=== PATIENT | female | born 1945 | race Caucasian/White ===

== ENCOUNTER → 2017-03-28 | Outpatient (CLI) | payer MEDICARE ==
[2017-03-28 10:44] LABS: Basophils % (A) 1 %; CH 29.3; CHCM 32.4; Eosinophils # (A) 0.1 k/uL (0-0.7); Eosinophils % (A) 2 %; HCT 44.2 % (34.0-46.0); HDW 2.48; HGB 14.6 gm/dL (11.4-16.0); Luc # (Auto) 0.13; Luc % (Auto) 2; Lymphocytes % (A) 51 %; MCH 29.9 pg (25.0-35.0); MCV 90.6 fL (80.0-100.0); Mean Platelet Volume 7.1; Monocytes # (A) 0.4 k/uL (0-1.0); Monocytes % (A) 6 %; Neutrophils # (A) 2.3 k/uL (1.3-7.7); Neutrophils % (A) 39 %; RBC 4.88 m/uL (3.80-5.40); RDW 14.1 % (11.5-15.5); WBC 5.8 k/uL (3.8-10.6); WBC (Perox) 5.64
[2017-03-28 10:52] LABS: Appearance,Urine Cloudy (Clear); Bacteria,Urine Few /hpf; Bilirubin,Urine Negative (Negative); Glucose,Urine (UA) Negative (Negative); Ketones,Urine Negative (Negative); Leukocyte Esterase,Urine Large (Negative); Mucus,Urine Few /hpf; Nitrite,Urine Negative (Negative); PH, Urine 5.5 (5.0-8.0); Particle Count 10246; Protein,Urine Trace (Negative); RBC,Urine 18 /hpf (0-5); Specific Gravity,Urine 1.017 (1.001-1.035); Squamous Epithelial Cell,Urine 1 /hpf (0-4); UA Billing (MACRO vs. MICRO) MICRO; Urobilinogen,Urine <2.0 mg/dL (<2.0); WBC,Urine >182 /hpf (0-5)
[2017-03-28 11:00] LABS: ALT 43 U/L (9-52); AST 39 U/L (14-36); Alkaline Phosphatase 87 U/L (38-126); Anion Gap 9 mmol/L; Blood Urea Nitrogen 12 mg/dL (7-17); Calcium 9.7 mg/dL (8.4-10.2); Carbon Dioxide 26 mmol/L (22-30); Chloride 106 mmol/L (98-107); Cholesterol 162 mg/dL (<200); Creatine Kinase 43 U/L (30-135); Glucose 102 mg/dL (74-99); HDL Cholesterol 47 mg/dL (40-60); Non-African American GFR(MDRD) >60 (>60 ml/min/1.73 sqM); Potassium 4.4 mmol/L (3.5-5.1); Sodium 141 mmol/L (137-145); Total Bilirubin 0.6 mg/dL (0.2-1.3); Uric Acid 5.4 mg/dL (3.7-7.4)
[2017-03-28 12:09] LABS: Manual Review Performed; RBC Morphology Normal
== END | disposition home or self-care (01) ==
LOC: LABWHC1 10:27
PROVIDERS: ATTEND Internal Medicine
DX: E78.00 Pure hypercholesterolemia, unspecified (principal); I10 Essential (primary) hypertension; F41.1 Generalized anxiety disorder; M15.9 Polyosteoarthritis, unspecified
CPT/HCPCS: 36415; 80053; 80061; 81001; 82306; 82550; 83036; 84439; 84443; 84550; 85025

== ENCOUNTER → 2017-04-19 | Outpatient (CLI) | payer MEDICARE ==
--- NOTE | 2017-04-19 16:15 | XR ---
EXAMINATION TYPE: XR chest 2V DATE OF EXAM: 04/19/2017 COMPARISON: NONE HISTORY: Shortness of breath TECHNIQUE: Frontal and lateral views of the chest are obtained. FINDINGS: Scattered senescent parenchymal changes noted. Hyperinflation compatible with COPD. No evidence for infiltrate. No evidence for atelectasis. Heart size is stable. Mediastinal structures are stable and grossly unremarkable. No evidence for hilar prominence. No epicardial leads. Sternotomy wires mediastinal clips noted. Degenerative changes dorsal spine. IMPRESSION: 1. No evidence for acute pulmonary disease. 2. The patient is cleared for MRI.
== END | disposition home or self-care (01) ==
LOC: RADXRMAIN 15:47
PROVIDERS: ATTEND Orthopaedic Surgery
DX: Z01.818 Encounter for other preprocedural examination (principal)
CPT/HCPCS: 71020

== ENCOUNTER 2018-11-07 23:12 | Emergency (ER) | payer MEDICARE ==
[2018-11-07 23:18] VITALS: BP 146/82; PULSE 94; RESP 20; TEMP 98.5
[2018-11-07] MEDS ORDERED: PROPARACAINE 0.5% OPHTH DROPS 15 ML BTL LEFT EYE STA (23:32)
[2018-11-08] MEDS ORDERED: ERYTHROMYCIN 5 MG/GM OPHTH OINT 3.5 GM TUBE LEFT EYE SCH
--- NOTE | 2018-11-08 00:30 | ED ---
General Adult HPI - General Chief complaint: Eye Problems Stated complaint: left eye problems Time Seen by Provider: 11/07/18 23:19 Source: patient, family, RN notes reviewed, old records reviewed Mode of arrival: ambulatory Limitations: no limitations - History of Present Illness Initial comments: 72-year-old female patient presents to ED with complaint of pain in her left medial canthus approximate 4 days. Patient reports that she was seen by an renal nurse and placed on a steroid approximately 2 days ago. Patient states that she has redness in right medial canthus which is worse today. Patient does state that she was rubbing her eyes. Patient denies any changes in vision. Denies any headache, nausea vomiting diarrhea, denies any other complaints. Systemic: Pt denies fatigue, fever/chills, rash. Pt denies weakness, night sweats, weight loss. Neuro: Pt denies headache, visual disturbances, syncope or pre-syncope. HEENT: Pt denies ocular discharge or irritation, otalgia, rhinorrhea, pharyngitis or notable lymphadenopathy. Cardiopulmonary: Pt denies chest pain, SOB, heart palpitations, dyspnea on exertion. Abdominal/GI: Pt denies abdominal pain, n/v/d. : Pt denies dysuria, burning w/ urination, frequency/urgency. Denies new onset urinary or bowel incontinence. MSK: Pt denies myalgia, loss of strength or function in extremities. Neuro: Pt denies new onset weakness, paresthesias. - Related Data Previous Rx's Medication Instructions Recorded Erythromycin Ophth Oint [Romycin 1 applic LEFT EYE QID 5 Days #1 11/08/18 Ophth Oint] tube Allergies Allergy/AdvReac Type Severity Reaction Status Date / Time No Known Allergies Allergy Verified 11/07/18 23:18 Review of Systems ROS Statement: Those systems with pertinent positive or pertinent negative responses have been documented in the HPI. ROS Other: All systems not noted in ROS Statement are negative. Past Medical History Additional Past Medical History / Comment(s): UTI History of Any Multi-Drug Resistant Organisms: None Reported Past Surgical History: Appendectomy, Section, Hysterectomy Additional Past Surgical History / Comment(s): aortic valve replacement Past Psychological History: No Psychological Hx Reported Smoking Status: Never smoker Past Alcohol Use History: None Reported Past Drug Use History: None Reported General Exam - General Exam Comments Initial Comments: Constitutional: NAD, AOX3, Pt has pleasant affect. HEENT: NC/AT, trachea midline, neck supple, no lymphadenopathy. Posterior pharynx non erythematous, without exudates. External ears appear normal, without discharge. Mucous membranes moist. Eyes PERRLA, EOM intact. Small hematoma noted in left medial canthus. No injection. Small 2mm laceration noted to upper eyelid region. There is no scleral icterus. No pallor noted. Mild amount of ecchymosis noted to lower eye lid. Cardiopulmonary: RRR, no murmurs, rubs or gallops, no JVD noted. Lungs CTAB in anterior and posterior nair. No peripheral edema. Abdominal exam: Abdomen soft and non-distended. Abdomen non-tender to palpation in all 4 quadrants. Bowel sounds active in LLQ. No hepatosplenomegaly. No ecchymosis Neuro: CN II-XII grossly intact. No nuchal rigidity. No raccon eyes, no gaffney sign, no hemotympanum. No cervical spinal tenderness. MSK: No posterior calf tenderness bilaterally, homans sign negative bilaterally. Posterior tibialis and radial pulse +2 bilaterally. Sensation intact in upper and lower extremities. Full active ROM in upper and lower extremities, 5/5 stregnth. Limitations: no limitations Course Vital Signs 11/07/18 23:13 Temperature 98.5 F Pulse Rate 94 Respiratory 20 Rate Blood Pressure 146/82 O2 Sat by Pulse 97 Oximetry Medical Decision Making - Medical Decision Making 72-year-old female patient presents to ED with complaint of pain in her left medial canthus approximate 4 days. Patient reports that she was seen by an renal nurse and placed on a steroid approximately 2 days ago. Patient states that she has redness in right medial canthus which is worse today. Patient does state that she was rubbing her eyes. Patient denies any changes in vision. Denies any headache, nausea vomiting diarrhea, denies any other complaints. Pt VSS, afebrile. Physical exam displayed: Small hematoma noted in left medial canthus. No injection. Small 2mm laceration noted to upper eyelid region. There is no scleral icterus. No pallor noted. Mild amount of ecchymosis noted to lower eye lid. Visual acuity right eye 20/40. L eye 20/25. Pt likely has a small 2mm laceration from rubbing eye causing the hematoma and very mild ecchymosis. Case discussed in depth with Dr. Gill who evaluated patient and disucssed case with city controller opthomologist Dr. Ruffin. Pt will be discharged with erythromycin, will f/u with optomitrist who she previously was established with. Pt will be discharged with erythromycin. Pt is not contact lens user. Disposition Clinical Impression: Hematoma Disposition: HOME SELF-CARE Condition: Stable Instructions (If sedation given, give patient instructions): Hematoma (ED) Additional Instructions: Patient to adhere to previously discussed treatment plan and will take medication(s) as directed. Patient to follow up with PCP in 1-2 days. Patient to return to ED if symptoms do not improve. He's medication as prescribed. Follow up with opthamologist tomorrow. Return to ER if condition worsens in any way. Prescriptions: Erythromycin Ophth Oint [Romycin Ophth Oint] 1 applic LEFT EYE QID 5 Days #1 tube Is patient prescribed a controlled substance at d/c from ED?: No Referrals: Susanne Evans MD [Primary Care Provider] - 1-2 days Austyn Ruffin MD [STAFF PHYSICIAN] - 1-2 days
== END 2018-11-08 00:44 | disposition home or self-care (01) ==
LOC: EC 23:12
DX: S01.112A Laceration without foreign body of left eyelid and periocular area, initial encounter (principal); Z95.4 Presence of other heart-valve replacement; X58.XXXA Exposure to other specified factors, initial encounter
CPT/HCPCS: 99283

== ENCOUNTER → 2019-04-11 | Outpatient (CLI) | payer MEDICARE ==
--- NOTE | 2019-04-12 07:33 | BD ---
EXAMINATION TYPE: Axial Bone Density DATE OF EXAM: 04/11/2019 COMPARISON: 12.14.2015 CLINICAL HISTORY: 73 YR OLD FEMALE...ICD-10 CODE: M81.0 OSTEOPOROSIS Height: 60 Weight: 159 FRAX RISK QUESTIONS: NOTHING ADDITIONAL TO NOTE HERE RISK FACTORS HISTORY OF: Diet low in dairy products/other sources of calcium: YES Postmenopausal woman: YES, TOTAL HYST AT 52 YRS, HRT FOR SHORT WHILE ONLY Hyperparathyroidism: NO Adrenal Insufficiency: NO MEDICATIONS: Thyroid Medications: STOPPED 17 YRS AGO Additional Medications: BP MEDS, MULTIVITAMIN WITH CALCIUM AND D, REFLUX PRN, STATIN FOR CHOLESTEROL, HEART MEDS Additional History: AORTIC VALVE REPLACEMENT, HYPERTENSION,REFLUX, OSTEOARTHRITIS EXAM MEASUREMENTS: Bone mineral densitometry was performed using the [employer] System. Bone mineral density as measured about the Lumbar spine is: ----- L1-L4(G/cm2): 1.197 T Score Values are as follows: ----- L1: -0.6 ----- L2: 0.2 ----- L3: -0.1 ----- L4: 0.7 ----- L1-L4: 0.1 Bone mineral density has: Increased 4.0% since study of: 12.14.2015 Bone mineral density about the R hip (g/cm2): 0.890 Bone mineral density about the L hip (g/cm2): 0.928 T Score values are as follows: -----R Neck: -1.4 -----L Neck: -1.1 -----R Total: -0.9 -----L Total: -0.6 Bone mineral density has: Decreased -4.5% since study of: 12.14.2015 FRAX%s: THERE IS A 10.3% CHANCE FOR A MAJOR OSTEOPOROTIC FX AND A 1.7% FOR HIP.....PROBABILITY FOR FX IN 10 YRS TIME IMPRESSION: No evidence for osteoporosis or osteopenia. NOTE: T-SCORE=SD OF THE YOUNG ADULT MEAN.
--- NOTE | 2019-04-15 10:41 | MM ---
Reason for exam: screening (asymptomatic). Last mammogram was performed 2 years and 1 month ago. History: Patient is postmenopausal. Family history of premenopausal breast cancer in grandmother at age 40. Benign core biopsy of the right breast, September 2004. Took unspecified hormones for 3 years beginning at age 56. Physical Findings: A clinical breast exam by your physician is recommended on an annual basis and results should be correlated with mammographic findings. MG 3D Screening Mammo W/Cad Bilateral CC and MLO view(s) were taken. Prior study comparison: March 24, 2017, bilateral MG 3d screening mammo w/cad. December 14, 2015, bilateral MG 3d screening mammo w/cad. There are scattered fibroglandular densities. There is a stable oval circumscribed right anterior depth upper outer quadrant mass. Benign appearing calcifications in the right breast. No suspicious abnormality. No significant changes when compared with prior studies. ASSESSMENT: Benign, BI-RAD 2 RECOMMENDATION: Routine screening mammogram of both breasts in 1 year.
== END | disposition home or self-care (01) ==
LOC: RADMAMWWP 13:47
PROVIDERS: ATTEND Internal Medicine
DX: Z12.31 Encounter for screening mammogram for malignant neoplasm of breast (principal); M81.0 Age-related osteoporosis without current pathological fracture
CPT/HCPCS: 77063; 77067; 77080

== ENCOUNTER → 2020-04-08 | Outpatient (CLI) | payer MEDICARE | END | disposition home or self-care (01) | LOC: LABWHC1 12:34 | PROVIDERS: ATTEND Internal Medicine | DX: Z20.828 Contact with and (suspected) exposure to other viral communicable diseases (principal) | CPT/HCPCS: U0003; C9803 ==

== ENCOUNTER 2020-06-01 08:09 | Day surgery (SDC) | payer MEDICARE ==
[2020-05-26 10:51] VITALS: BMI 31.2
[2020-06-01] MEDS ORDERED: fentaNYL (PF) 50 MCG/ML 2 ML AMP ONE (08:24)
[2020-06-01] MEDS ORDERED: SODIUM CHLORIDE 0.9% 500 ML 500 ML IV ONE (08:34)
[2020-06-01 08:35] VITALS: TEMP 98.2
[2020-06-01 08:43] LABS: Appearance,Urine Clear (Clear); Bacteria,Urine Rare /hpf; Bilirubin,Urine Negative (Negative); Blood,Urine Trace (Negative); Color,Urine Yellow; Glucose,Urine (UA) Negative (Negative); Hyaline Casts,Urine 1 /lpf (0-2); Ketones,Urine Negative (Negative); Leukocyte Esterase,Urine Large (Negative); Mucus,Urine Occasional /hpf; Nitrite,Urine Negative (Negative); PH, Urine 5.5 (5.0-8.0); Protein,Urine Negative (Negative); RBC,Urine 11 /hpf (0-5); Specific Gravity,Urine 1.018 (1.001-1.035); Squamous Epithelial Cell,Urine <1 /hpf (0-4); Urobilinogen,Urine <2.0 mg/dL (<2.0); WBC,Urine 67 /hpf (0-5)
[2020-06-01] MEDS ORDERED: fentaNYL (PF) 50 MCG/ML 2 ML AMP IV ONE ×2 (08:55)
[2020-06-01] MEDS ORDERED: MIDAZOLAM 2 MG/2 ML VIAL IV ONE ×2 (08:55)
[2020-06-01 09:12] VITALS: RESP 16
--- NOTE | 2020-06-01 09:30 | P.TEE ---
Indications for Procedure(s): Aortic and mitral regurgitation Date of Procedure: 06/01/20 Preoperative Diagnosis: History of aortic valve replacement for bicuspid aortic valve. Presence of moderate and is severe aortic and mitral regurgitation. Description of Procedure(s): INDICATION: This patient has history of aortic valve replacement for bicuspid aortic valve, about 10 years ago. She was found to have evidence of moderate aortic and mitral regurgitation. Patient is advised to have LAMAR examination for further evaluation CONSENT: Informed verbal consent is obtained from the patient PROCEDURE: Patient was brought to the lab in a fasting state. She was prepped and draped in the usual fashion. Patient was given a total of 3 mg of Versed and 50 g of fentanyl for sedation. The throat was sprayed with Hurricaine. A lubricated Omni probe was introduced into the oropharynx and was advanced into the esophagus. Patient tolerated the procedure well. No immediate complications. Color, pulsed and continuous wave Doppler was performed. Saline contrast bubble injection was also performed FINDINGS: There is a mild prosthetic valve in the aortic position which showing normal opening excursion. There is a central aortic regurgitation which appears to be about 3+. Slightly eccentric. The aortic root diameter is about 4 cm. The mitral valve showed evidence of prolapse involving the anterior mitral leaflet. There is a moderate to severe mitral regurgitation which is about 3+. No reversal of flow in the pulmonary veins. There is biatrial enlargement. No clot in the left atrial appendage. No crossing of bubbles across the interatrial septum and no spontaneous shunting across the septum. The left ventricle appeared to be mildly dilated with mildly impaired LV function. Aorta did not show any significant plaque IMPRESSION: 1. About 3+ aortic regurgitation which is a valvular #2, about 3+ mitral regurgitation with evidence of mitral valve prolapse and thickening involving the anterior leaflet #3. No clot in the left atrial appendage. #4. No PFO #5. Left atrial enlargement #6. Left ventricle size is at the upper limits of normal with mildly impaired LV function. #7. No significant plaque in the aorta PLAN: Patient to continue current medical therapy. Follow up with Dr. TIA Carbajal and also at [facility] regarding further management.
[2020-06-01 10:33] VITALS: BP 126/58; PULSE 62
== END 2020-06-01 10:45 | disposition home or self-care (01) ==
LOC: CATHCVL 08:09
PROVIDERS: ATTEND Internal Medicine Cardiovascular Disease
DX: Q23.1 Congenital insufficiency of aortic valve (principal); I25.10 Atherosclerotic heart disease of native coronary artery without angina pectoris; I44.7 Left bundle-branch block, unspecified; I10 Essential (primary) hypertension; E78.00 Pure hypercholesterolemia, unspecified; E78.5 Hyperlipidemia, unspecified; Z79.899 Other long term (current) drug therapy; Z79.82 Long term (current) use of aspirin; Z95.3 Presence of xenogenic heart valve
CPT/HCPCS: 93312; 93320; 93325; 81001; 87086; J2250; J3010

== ENCOUNTER 2020-06-19 08:06 | Day surgery (SDC) | payer MEDICARE ==
[2020-06-17 10:08] VITALS: BMI 30.7
[~2020-06-19 08:06] MED LIST: ALPRAZolam 0.25 MG TAB PO PRN; ALPRAZolam 0.5 MG TAB PO PRN; ASPIRIN 325 MG TAB PO STA; ATORVASTATIN 80 MG TAB PO STA; HEPARIN SODIUM,PORCINE 10,000 UNIT in SODIUM CHLORIDE 0.9% 1,000 ML IRRIGATION PRN; HEPARIN SODIUM,PORCINE 2,500 UNIT in SODIUM CHLORIDE 0.9% 250 ML IRRIGATION PRN; NITROGLYCERIN SL TABS 0.4 MG TAB SUBLINGUAL PRN; SODIUM CHLORIDE 0.9% 1,000 ML in EMPTY BAG 1 BAG IV ONE
[2020-06-19] MEDS ORDERED: SODIUM CHLORIDE 0.9% 1,000 ML IV ONE (08:12)
[2020-06-19] MEDS ORDERED: LIDOCAINE 1% INJ 10MG/ML (20 ML MDV) ONE (08:26)
[2020-06-19 08:44] LABS: Basophils # (A) 0.1 k/uL (0-0.2); Basophils % (A) 1 %; Eosinophils # (A) 0.2 k/uL (0-0.7); Eosinophils % (A) 3 %; HCT 46.5 % (34.0-46.0); Lymphocytes # (A) 2.3 k/uL (1.0-4.8); Lymphocytes % (A) 38 %; MCH 30.8 pg (25.0-35.0); MCHC 34.4 g/dL (31.0-37.0); MCV 89.4 fL (80.0-100.0); Mean Platelet Volume 6.5; Monocytes # (A) 0.3 k/uL (0-1.0); Monocytes % (A) 5 %; Neutrophils # (A) 3.1 k/uL (1.3-7.7); Neutrophils % (A) 52 %; Platelet Count 174 k/uL (150-450); RBC 5.19 m/uL (3.80-5.40); RDW 12.7 % (11.5-15.5); WBC 5.9 k/uL (3.8-10.6)
[2020-06-19 08:54] LABS: Calcium 10.2 mg/dL (8.4-10.2); Potassium 4.6 mmol/L (3.5-5.1)
[2020-06-19 08:58] VITALS: RESP 16; TEMP 98
[2020-06-19] MEDS: MIDAZOLAM 2 MG/2 ML VIAL IV ONE ×2 (09:58→10:10)
[2020-06-19] MEDS ORDERED: LIDOCAINE 1% INJ 10MG/ML (20 ML MDV) SQ ONE (10:00)
[2020-06-19] MEDS ORDERED: IOPAMIDOL-370 125ML BTL INJ ONE (10:25)
[2020-06-19] MEDS ORDERED: SODIUM CHLORIDE 0.9% 1,000 ML IV SCH (10:41)
[2020-06-19] MEDS ORDERED: ACETAMINOPHEN TAB 325 MG TAB PO STA (10:49)
[2020-06-19] MEDS ORDERED: ACETAMINOPHEN TAB 325 MG TAB ONE (10:50)
[2020-06-19 11:44] LABS: ALT 115 U/L (4-34); AST 101 U/L (14-36); African American GFR (CKD) >90 (>60 ml/min/1.73 sqM); Alkaline Phosphatase 45 U/L (38-126); Anion Gap 8 mmol/L; Blood Urea Nitrogen 15 mg/dL (7-17); Carbon Dioxide 24 mmol/L (22-30); Chloride 106 mmol/L (98-107); Glucose 115 mg/dL (74-99); Non-African American GFR(CKD) 79 (>60 ml/min/1.73 sqM); Potassium 4.1 mmol/L (3.5-5.1); Sodium 138 mmol/L (137-145); Total Bilirubin 1.1 mg/dL (0.2-1.3)
[2020-06-19 11:50] LABS: Basophils % (A) 1 %; Eosinophils # (A) 0.2 k/uL (0-0.7); Eosinophils % (A) 4 %; HCT 41.6 % (34.0-46.0); HGB 14.7 gm/dL (11.4-16.0); Lymphocytes # (A) 1.9 k/uL (1.0-4.8); Lymphocytes % (A) 33 %; MCHC 35.3 g/dL (31.0-37.0); MCV 87.8 fL (80.0-100.0); Mean Platelet Volume 7.3; Monocytes # (A) 0.4 k/uL (0-1.0); Monocytes % (A) 7 %; Neutrophils # (A) 3.2 k/uL (1.3-7.7); Neutrophils % (A) 55 %; Platelet Count 240 k/uL (150-450); RBC 4.74 m/uL (3.80-5.40); RDW 12.8 % (11.5-15.5); WBC 5.8 k/uL (3.8-10.6)
[2020-06-19 12:00] LABS: T4, Free (Free Thyroxine) 1.23 ng/dL (0.78-2.19)
--- NOTE | 2020-06-19 12:52 | CC ---
CARDIAC CATHETERIZATION REPORT DATE OF SERVICE: 06/19/2020. PROCEDURE: Coronary angiography. PERFORMED BY: Dr. Jarocho Carbajal. Moderate conscious sedation time was 28 minutes. Patient was administered Versed. Oxygen saturation, hemodynamics and EKG were monitored very closely. CLINICAL INFORMATION: Mrs. Shaffer is a 74-year-old lady with a history of bicuspid aortic valve without dilatation of ascending aorta. In 2007 at [facility], she had a bioprosthetic aortic valve placed. Over time she has developed significant regurgitation of the bioprosthetic aortic valve and also of her mitral valve with mitral valve prolapse. She was evaluated at [facility] following a transesophageal echo and they requested a right and left heart catheterization, and therefore I brought in the patient for the procedure today after due discussion regarding risks, benefits, and options. PROCEDURE NOTE: Under local anesthesia and strict aseptic precautions, I tried to gain access to the right femoral vein, but I had difficulty and patient had an important coronavirus antigen injection today around 6 p.m. so I did not want to place a larger venous sheath. I therefore decided only to do coronary angiography. A 6-Uzbek introducer placed in the right femoral artery. Using a standard right Ildefonso catheter and a JL4.5 catheter, I performed selective coronary angiography. LV pressures were not checked. LV gram was not performed. The sheath was taken out and Angio-Seal device used to secure hemostasis and a FemoStop was applied just as an extra precaution even though there was good hemostasis and she was sent to the room in a stable condition. CORONARY ANGIOGRAPHY FINDINGS: RIGHT CORONARY ARTERY: Dominant vessel has some spasm in the proximal portion with about a 40% narrowing in the proximal portion of the RCA, but no significant disease. Distally the vessel gives off a large PDA and small PLV supplies sizable amount of myocardium. No significant disease. The dominant RCA has a 40% lesion. LEFT MAIN CORONARY ARTERY: This is a very short vessel immediately bifurcates into LAD and circumflex. No significant disease. LEFT ANTERIOR DESCENDING CORONARY ARTERY: Good caliber vessel extends along the anterior wall supplies a sizable amount of myocardium. It gives off septal and diagonal branches. It runs all the way to the apex supplying a sizable amount of myocardium. No significant disease in the large LAD system. LEFT POSTERIOR CIRCUMFLEX CORONARY ARTERY: Nondominant vessel gives off a first obtuse marginal and then continues as a posterolateral branch has a groove branch. The circumflex is a large vessel. No significant disease. FINAL IMPRESSION: This patient has right dominant system, 40% stenosis in the proximal RCA. No significant disease in circumflex, left main or LAD. RECOMMENDATIONS: From a valvular disease standpoint, the decision regarding percutaneous aortic valve implant versus open surgery with aortic valve replacement, redo operation and mitral valve repair will be made by Dr. Vasu Oropeza. I will send the CD to him. Findings were discussed with the patient. I spoke to her and daughter by phone. We will send her home this evening and I will see her in the office on Monday and I will send a CD to the [facility] and a copy will be given to the patient. From my perspective, doing a percutaneous aortic valve implant if feasible would be a good approach and consider mitral valve repair down the road if necessary for mitral valve prolapse. I suspect the aortic regurgitation and higher of pressures may be also affecting the mitral valve performance. MMODL / IJN: [id number] /
[2020-06-19 16:11] VITALS: BP 126/59; PULSE 81
== END 2020-06-19 16:01 | disposition home or self-care (01) ==
LOC: CATHCVL 08:06
PROVIDERS: ATTEND Internal Medicine Interventional Cardiology
DX: I25.10 Atherosclerotic heart disease of native coronary artery without angina pectoris (principal); I44.7 Left bundle-branch block, unspecified; I10 Essential (primary) hypertension; E78.00 Pure hypercholesterolemia, unspecified; E78.5 Hyperlipidemia, unspecified; E66.3 Overweight; Z87.74 Personal history of (corrected) congenital malformations of heart and circulatory system; Z95.2 Presence of prosthetic heart valve; Z79.82 Long term (current) use of aspirin; Z79.899 Other long term (current) drug therapy; Z68.30 Body mass index [BMI] 30.0-30.9, adult
CPT/HCPCS: 93454; 84439; 80053; 84443; 85025; C1760; C1751; C1894; C1769; J2250; J2001; Q9967; 80048

== ENCOUNTER → 2021-05-10 | Outpatient (CLI) | payer MEDICARE ==
--- NOTE | 2021-05-11 10:36 | BD ---
EXAMINATION TYPE: Axial Bone Density DATE OF EXAM: 05/10/2021 COMPARISON: NONE CLINICAL HISTORY: M81.0 AGE RELATED OSTEOPOROSIS Height: 5 FT Weight: 139 FRAX RISK QUESTIONS: Alcohol (3 or more units per day): NO Family History (Parent hip fracture): NO Glucocorticoids (More than 3mos): NO (Ex: prednisone, prednisolone, methylprednisolone, dexamethasone, and hydrocortisone). History of Fracture in Adulthood: NO Secondary Osteoporosis: 1. Type 1 Diabetes: NO 2. Hyperthyroidism: NO 3. Menopause before 45: NO 4. Malnutrition: NO 5. Chronic liver disease: NO Rheumatoid Arthritis: NO Current Tobacco Use: NO RISK FACTORS HISTORY OF: Surgery to Spine/Hip(right/left)/Wrist (right/left): NO Family History of Osteoporosis: NO Active: SOMEWHAT Diet low in dairy products/other sources of calcium: NO Postmenopausal woman: YES Take estrogen and/or progesterone medications: TOOK HRT FOR UNDER FIVE YEARS NO LONGER TAKES Lost more than 2 inches in height since high school: NO Frequent falls: NO Poor Health: FAIR Hyperparathyroidism: NO Adrenal Insufficiency: NO MEDICATIONS: Additional Medications: METOPROLOL, LISINOPRIL, ASPIRIN, CRESTOR,OMEPRAZOLE, ANXIETY MEDS, Additional History: EXAM MEASUREMENTS: Bone mineral densitometry was performed using the [employer] System. Bone mineral density as measured about the Lumbar spine is: ----- L1-L4(G/cm2): 1.083 T Score Values are as follows: ----- L2: -0.2 ----- L3: -1.1 ----- L4: -0.9 ----- L1-L4: -0.8 Bone mineral density has: DECREASED -10.4 % since study of: 2018 Bone mineral density about the R hip (g/cm2): 0.816 Bone mineral density about the L hip (g/cm2): 0.790 T Score values are as follows: -----R Neck: -1.6 -----L Neck: -1.8 -----R Total: -1.5 -----L Total: -1.2 Bone mineral density has: DECREASED -7.5 % since study of: 2018 IMPRESSION: Osteopenia (T Score between -2.5 and -1). There is slightly increased risk of fracture and the patient may be considered for treatment. Re-Screen 2-5 years. NOTE: T-SCORE=SD OF THE YOUNG ADULT MEAN.
--- NOTE | 2021-05-11 12:28 | MM ---
Reason for exam: screening (asymptomatic). Last mammogram was performed 2 years and 1 month ago. History: Patient is postmenopausal. Family history of premenopausal breast cancer in grandmother at age 40. Benign core biopsy of the right breast, September 2004. Took unspecified hormones for 3 years beginning at age 56. Physical Findings: A clinical breast exam by your physician is recommended on an annual basis and results should be correlated with mammographic findings. MG 3D Screening Mammo W/Cad Bilateral CC and MLO view(s) were taken. Prior study comparison: April 11, 2019, bilateral MG 3d screening mammo w/cad. March 24, 2017, bilateral MG 3d screening mammo w/cad. There are scattered fibroglandular densities. No significant changes when compared with prior studies. ASSESSMENT: Benign, BI-RAD 2 RECOMMENDATION: Routine screening mammogram of both breasts in 1 year.
== END | disposition home or self-care (01) ==
LOC: RADBDWWP 15:38
PROVIDERS: ATTEND Internal Medicine
DX: Z12.31 Encounter for screening mammogram for malignant neoplasm of breast (principal); M81.0 Age-related osteoporosis without current pathological fracture
CPT/HCPCS: 77063; 77067; 77080

== ENCOUNTER → 2023-05-11 | Outpatient (CLI) | payer MEDICARE ==
--- NOTE | 2023-05-17 12:30 | MM ---
Reason for Exam: Screening (asymptomatic). Last mammogram was performed 2 year(s) and 0 month(s) ago. Patient History: Menarche at age 13. First Full-Term at age 23. Left ovary removed at age 52. Right ovary removed at age 52. Hysterectomy at age 52. Postmenopausal. Unspecified Hormone for 3 years from age 56 until age 59. 09/2004, Benign Core Biopsy on the right side. Paternal grandmother had breast cancer, age 40. Risk Values: Katrin 5 year model risk: 1.8%. NCI Lifetime model risk: 3.5%. Prior Study Comparison: 02/03/2014 Bilateral Screening Mammogram, [facility]. 12/14/2015 Bilateral Screening Mammogram, [facility]. 03/24/2017 Bilateral Screening Mammogram, [facility]. 04/11/2019 Bilateral Screening Mammogram, [facility]. 05/10/2021 Bilateral Screening Mammogram, [facility]. Tissue Density: The breast tissue is almost entirely fat. Findings: Analyzed By CAD. Right breast biopsy clip. There is no suspicious group of microcalcifications or new suspicious mass. Overall Assessment: Benign, BI-RAD 2 Management: Screening Mammogram of both breasts in [address] [facility] will attempt to contact patient to return for supplemental views and ultrasound if indicated. Patient should continue monthly self-breast exams. A clinical breast exam by your physician is recommended on an annual basis. This exam should not preclude additional follow-up of suspicious palpable abnormalities. Note on Katrin scores and lifetime risk: 1. A Katrin score greater than 3% is considered moderate risk. If this is the case, consider specialist referral to assess eligibility for a risk reducing agent. 2. If overall lifetime risk for the development of breast cancer is 20% or higher, the patient may qualify for future screening with alternating mammogram and breast MRI. Electronically signed and approved by: Willie Garcia DO
== END | disposition home or self-care (01) ==
LOC: RADBDWWP 11:59
PROVIDERS: ATTEND Internal Medicine
DX: Z12.31 Encounter for screening mammogram for malignant neoplasm of breast (principal); Z78.0 Asymptomatic menopausal state; Z80.3 Family history of malignant neoplasm of breast
CPT/HCPCS: 77063; 77067

== ENCOUNTER 2024-11-28 13:01 | Inpatient (IN) | payer MEDICARE ==
--- NOTE | 2024-11-28 13:22 | ED ---
General Adult HPI - General Chief complaint: Chest Pain Stated complaint: Abn heart rate Time Seen by Provider: 11/28/24 13:08 Source: patient, RN notes reviewed, old records reviewed Mode of arrival: ambulatory Limitations: no limitations - History of Present Illness Initial comments: 79-year-old female presenting for evaluation of dizziness, exertional dyspnea. Patient was noted to be bradycardic at her primary care office and sent to the emergency department. Patient does take metoprolol with previous history of aortic valve replacement. Patient has no sustained central chest pain. She denies lower extremity pain or swelling. She was recently diagnosed with urinary tract infection and has had some left flank pain. - Related Data Home Medications Medication Instructions Recorded Confirmed Ascorbic Acid [Vitamin C] 500 mg PO DAILY 05/26/20 06/19/20 Aspirin [Adult Low Dose Aspirin EC] 81 mg PO DAILY 05/26/20 06/19/20 Calcium Carbonate [Calcium] 600 mg PO DAILY 05/26/20 06/19/20 Cranberry Fruit Extract [Cranberry] 200 mg PO DAILY 05/26/20 06/19/20 Magnesium Oxide [Mejia] 500 mg PO DAILY 05/26/20 06/19/20 Metoprolol Tartrate [Lopressor] 50 mg PO BID 05/26/20 06/19/20 Multivitamins, Thera [Multivitamin 1 tab PO DAILY 05/26/20 06/19/20 (formulary)] Dorris-3 Fatty Acids/Fish Oil [Fish 1 each PO BID 05/26/20 06/19/20 Oil 1,000 mg Softgel] Omeprazole 20 mg PO DAILY PRN 05/26/20 06/17/20 Rosuvastatin [Crestor] 20 mg PO DAILY 05/26/20 06/19/20 Ubidecarenone [Co Q-10] 200 mg PO DAILY 05/26/20 06/19/20 Zinc 50 mg PO DAILY 05/26/20 06/19/20 lisinopriL [Prinivil] 10 mg PO DAILY 05/26/20 06/19/20 Allergies Allergy/AdvReac Type Severity Reaction Status Date / Time No Known Allergies Allergy Verified 11/28/24 13:06 Review of Systems ROS Statement: Those systems with pertinent positive or pertinent negative responses have been documented in the HPI. ROS Other: All systems not noted in ROS Statement are negative. Past Medical History Additional Past Medical History / Comment(s): recent UTI-just finished antibiotics, leaky valve History of Any Multi-Drug Resistant Organisms: MRSA Date of last positivie culture/infection: 11/26/19 MDRO Source:: ARM MRSA Past Surgical History: Appendectomy, Cardiac Valve Replacement, Section, Hysterectomy Additional Past Surgical History / Comment(s): aortic valve replacement, recent LAMAR Past Psychological History: Anxiety Smoking Status: Never smoker Past Alcohol Use History: Rare Past Drug Use History: None Reported General Exam Limitations: no limitations General appearance: alert, in no apparent distress Head exam: Present: atraumatic, normocephalic Eye exam: Present: normal appearance, PERRL ENT exam: Present: normal exam Neck exam: Present: normal inspection. Absent: tenderness, meningismus Respiratory exam: Present: normal lung sounds bilaterally. Absent: respiratory distress, wheezes Cardiovascular Exam: Present: normal rhythm, bradycardia GI/Abdominal exam: Present: soft. Absent: distended, tenderness, guarding Extremities exam: Present: normal inspection, normal capillary refill. Absent: pedal edema Neurological exam: Present: alert, oriented X3, CN II-XII intact. Absent: motor sensory deficit Psychiatric exam: Present: normal affect, normal mood Skin exam: Present: warm, dry, intact. Absent: cyanosis, diaphoretic Course Vital Signs 11/28/24 11/28/24 11/28/24 13:03 13:14 13:16 Temperature 97.9 F Pulse Rate 43 L 43 L Pulse Rate [ 42 L Clerk Guide ] Respiratory 20 16 Rate Blood Pressure 129/73 150/52 O2 Sat by Pulse 99 92 L Oximetry 11/28/24 11/28/24 14:01 14:27 Temperature Pulse Rate 42 L 42 L Pulse Rate [ Clerk Guide ] Respiratory 18 18 Rate Blood Pressure 148/78 146/89 O2 Sat by Pulse 98 97 Oximetry Medical Decision Making - Medical Decision Making Was pt. sent in by a medical professional or institution (, PA, HEAT TREATMENT TECHNICIAN, urgent care, hospital, or group home...) When possible be specific @ -Sent over from Dr. Evans with bradycardia Did you speak to anyone other than the patient for history (EMS, parent, family, police, friend...)? What history was obtained from this source @ -No Did you review nursing and triage notes (agree or disagree)? Why? @ -I reviewed and agree with nursing and triage notes Were old charts reviewed (outside hosp., previous admission, EMS record, old EKG, old radiological studies, urgent care reports/EKG's, group home records)? Report findings @ -No old charts were reviewed Differential Palpitations Ventricular arrhythmias, atrial arrhythmias, myocardial infarction, anemia, thyrotoxicosis, electrolyte imbalance, hypokalemia, pulmonary embolism, pulmonary disease, drugs, alcohol, anxiety, stress.... This is not meant to be an all-inclusive list. EKG interpreted by me (3pts min.). @ -[Complete heart block with a ventricular rate of 42 complete A-V dissociation QRS duration 140, QTc [address] segment elevation. X-rays interpreted by me (1pt min.). @ -Chest x-ray showing cardiomegaly without acute findings. CT interpreted by me (1pt min.). @ -None done U/S interpreted by me (1pt. min.). @ -None done What testing was considered but not performed or refused? (CT, X-rays, U/S, labs)? Why? @ -None What meds were considered but not given or refused? Why? @ -None Did you discuss the management of the patient with other professionals (professionals i.e. DrMaria Guadalupe, PA, HEAT TREATMENT TECHNICIAN, lab, RT, psych nurse, social services specialist, warp yarn sorter, teacher, canine enforcement officer, spring encaser)? Give summary @Case discussed with Dr. Evans who will admit and Dr. Flores covering for cardiology. Was smoking cessation discussed for >3mins.? @ -No Was critical care preformed (if so, how long)? @ -Yes, 35 minutes. Were there social determinants of health that impacted care today? How? (Homelessness, low income, unemployed, alcoholism, drug addiction, transportati on, low edu. Level, literacy, decrease access to med. care, half-way, rehab)? @ -No Was there de-escalation of care discussed even if they declined (Discuss DNR or withdrawal of care, Hospice)? DNR status @ -No What co-morbidities impacted this encounter? (DM, HTN, Smoking, COPD, CAD, Cancer, CVA, ARF, Chemo, Hep., AIDS, mental health diagnosis, sleep apnea, morbid obesity)? @ -History of aortic valve replacement Was patient admitted / discharged? Hospital course, mention meds given and route, prescriptions, significant lab abnormalities, going to OR and other pertinent info. @79-year-old female presenting from primary care office with complete heart block. Patient has felt lightheaded with exertional dyspnea over the past several days. Patient is in complete heart block with stable blood pressure. She takes metoprolol and took this medication this morning. Laboratory testing and chest x-ray are obtained in the emergency department. She has normal electrolytes. Patient remained stable while in the emergency department. She is evaluated by cardiology. Undiagnosed new problem with uncertain prognosis? @ -No Drug Therapy requiring intensive monitoring for toxicity (Heparin, Nitro, Insulin, Cardizem)? @ -No Were any procedures done? @ -No Diagnosis/symptom? @ -Complete heart block Acute, or Chronic, or Acute on Chronic? @ -[Acute Uncomplicated (without systemic symptoms) or Complicated (systemic symptoms)? @Complicated Side effects of treatment? @ -No Exacerbation, Progression, or Severe Exacerbation? @ -No Poses a threat to life or bodily function? How? (Chest pain, [place], [place], pneumonia, PE, COPD, DKA, ARF, appy, cholecystitis, CVA, Diverticulitis, Homicidal, Suic idal, threat to staff... and all critical care pts) @Yes, complete heart block, cardiogenic shock - Lab Data Result diagrams: 11/28/24 13:26 11/28/24 13:26 Lab Results 11/28/24 11/28/24 11/28/24 Range/Units 13:26 13:26 13:26 WBC 8.44 (4.50-10.00) 10*3/uL RBC 4.98 (4.10-5.20) 10*6/uL Hgb 14.8 (12.0-15.0) g/dL Hct 43.5 (37.2-46.3) % MCV 87.3 (80.0-97.0) fL MCH 29.7 (27.0-32.0) pg MCHC 34.0 (32.0-37.0) g/dL Plt Count 152 (140-440) 10*3/uL MPV 9.8 (9.5-12.2) fL Immature Gran % (Auto) 0.2 % Neutrophils % 72.7 % Lymphocytes % 18.2 % Monocytes % 8.4 % Eosinophils % 0.4 % Basophils % 0.1 % Immature Gran # 0.02 (0.00-0.04) 10*3/uL Neutrophils # 6.13 (1.80-7.70) 10*3/uL Lymphocytes # 1.54 (0.90-5.00) 10*3/uL Monocytes # 0.71 (0.20-1.00) 10*3/uL Eosinophils # 0.03 L (0.04-0.35) 10*3/uL Basophils # 0.01 (0.00-0.10) 10*3/uL PT 10.5 (10.0-12.5) sec INR 0.9 (<1.2) APTT 20.9 L (22.0-30.0) sec Sodium 139 (137-145) mmol/L Potassium 4.6 (3.5-5.1) mmol/L Chloride 103 (98-107) mmol/L Carbon Dioxide 20 L (22-30) mmol/L Anion Gap 16 mmol/L BUN 23 H (7-17) mg/dL Creatinine 1.07 H (0.52-1.04) mg/dL Est GFR (CKD-EPI)AfAm 57 (>60 ml/min/1.73 sqM) Est GFR (CKD-EPI)NonAf 50 (>60 ml/min/1.73 sqM) Glucose 135 H (74-99) mg/dL Calcium 10.1 (8.4-10.2) mg/dL Magnesium 2.0 (1.6-2.3) mg/dL Total Bilirubin 0.6 (0.2-1.3) mg/dL AST 56 H (14-36) U/L ALT 57 H (4-34) U/L Alkaline Phosphatase 126 (38-126) U/L Troponin I (0.000-0.034) ng/mL NT-Pro-B Natriuret Pep 9220 pg/mL Total Protein 7.4 (6.3-8.2) g/dL Albumin 4.9 (3.5-5.0) g/dL 11/28/24 Range/Units 13:26 WBC (4.50-10.00) 10*3/uL RBC (4.10-5.20) 10*6/uL Hgb (12.0-15.0) g/dL Hct (37.2-46.3) % MCV (80.0-97.0) fL MCH (27.0-32.0) pg MCHC (32.0-37.0) g/dL Plt Count (140-440) 10*3/uL MPV (9.5-12.2) fL Immature Gran % (Auto) % Neutrophils % % Lymphocytes % % Monocytes % % Eosinophils % % Basophils % % Immature Gran # (0.00-0.04) 10*3/uL Neutrophils # (1.80-7.70) 10*3/uL Lymphocytes # (0.90-5.00) 10*3/uL Monocytes # (0.20-1.00) 10*3/uL Eosinophils # (0.04-0.35) 10*3/uL Basophils # (0.00-0.10) 10*3/uL PT (10.0-12.5) sec INR (<1.2) APTT (22.0-30.0) sec Sodium (137-145) mmol/L Potassium (3.5-5.1) mmol/L Chloride (98-107) mmol/L Carbon Dioxide (22-30) mmol/L Anion Gap mmol/L BUN (7-17) mg/dL Creatinine (0.52-1.04) mg/dL Est GFR (CKD-EPI)AfAm (>60 ml/min/1.73 sqM) Est GFR (CKD-EPI)NonAf (>60 ml/min/1.73 sqM) Glucose (74-99) mg/dL Calcium (8.4-10.2) mg/dL Magnesium (1.6-2.3) mg/dL Total Bilirubin (0.2-1.3) mg/dL AST (14-36) U/L ALT (4-34) U/L Alkaline Phosphatase (38-126) U/L Troponin I <0.012 (0.000-0.034) ng/mL NT-Pro-B Natriuret Pep pg/mL Total Protein (6.3-8.2) g/dL Albumin (3.5-5.0) g/dL Critical Care Time Critical Care Time: Yes Total Critical Care Time: 35 Disposition Clinical Impression: Complete heart block Disposition: ADMITTED IP TO THIS HOSP Condition: Serious Is patient prescribed a controlled substance at d/c from ED?: No Referrals: Susanne Evans MD [Primary Care Provider] - 1-2 days Time of Disposition: 15:09
[2024-11-28 13:37] LABS: Basophils # (A) 0.01 10*3/uL (0.00-0.10); Basophils % (A) 0.1 %; Eosinophils # (A) 0.03 10*3/uL (0.04-0.35); Eosinophils % (A) 0.4 %; HCT 43.5 % (37.2-46.3); HGB 14.8 g/dL (12.0-15.0); Lymphocytes # (A) 1.54 10*3/uL (0.90-5.00); Lymphocytes % (A) 18.2 %; MCH 29.7 pg (27.0-32.0); MCHC 34.0 g/dL (32.0-37.0); MCV 87.3 fL (80.0-97.0); Monocytes # (A) 0.71 10*3/uL (0.20-1.00); Monocytes % (A) 8.4 %; Neutrophils # (A) 6.13 10*3/uL (1.80-7.70); Neutrophils % (A) 72.7 %; Platelet Count 152 10*3/uL (140-440); RBC 4.98 10*6/uL (4.10-5.20); RDW 14.0 % (11.5-14.5); WBC 8.44 10*3/uL (4.50-10.00)
[2024-11-28 13:48] LABS: ALT 57 U/L (4-34); AST 56 U/L (14-36); African American GFR (CKD) 57 (>60 ml/min/1.73 sqM); Albumin 4.9 g/dL (3.5-5.0); Alkaline Phosphatase 126 U/L (38-126); Anion Gap 16 mmol/L; Blood Urea Nitrogen 23 mg/dL (7-17); Calcium 10.1 mg/dL (8.4-10.2); Carbon Dioxide 20 mmol/L (22-30); Chloride 103 mmol/L (98-107); Glucose 135 mg/dL (74-99); Magnesium 2.0 mg/dL (1.6-2.3); Non-African American GFR(CKD) 50 (>60 ml/min/1.73 sqM); Potassium 4.6 mmol/L (3.5-5.1); Sodium 139 mmol/L (137-145); Total Protein 7.4 g/dL (6.3-8.2)
[2024-11-28 13:53] LABS: INR 0.9 (<1.2); Prothrombin Time 10.5 sec (10.0-12.5)
[2024-11-28 13:54] LABS: Partial Thromboplastin Time 20.9 sec (22.0-30.0)
[2024-11-28 13:56] LABS: NT-Pro-B-Type Natriuretic Pept 9220 pg/mL
--- NOTE | 2024-11-28 14:01 | XR ---
EXAMINATION TYPE: XR chest 2V DATE OF EXAM: 11/28/2024 1:54 PM COMPARISON: Chest radiographs from 04/19/2017 CLINICAL INDICATION: Female, 79 years old with history of Chest Pain; [facility] TECHNIQUE: XR chest 2V Frontal and lateral views of the chest. FINDINGS: Lungs/Pleura: There is no evidence of pleural effusion, focal consolidation, or pneumothorax. Pulmonary vascularity: Unremarkable. Heart/mediastinum: Cardiomediastinal silhouette is unremarkable. Musculoskeletal: No acute osseous pathology. Midline sternotomy wires are noted. IMPRESSION: No acute cardiopulmonary disease/process. [facility], , 11/28/2024 1:59 PM
[2024-11-28] MEDS ORDERED: NALOXONE 0.4 MG/ML 1 ML VIAL IV PRN (15:12)
--- NOTE | 2024-11-28 18:23 | P.CRDCN ---
History of Present Illness Consult date: 11/28/24 History of present illness: HISTORY OF PRESENTING ILLNESS: 79-year-old previously known to Dr. Carbajal prior history of bicuspid aortic valve status post surgical aortic valve replacement 17 years ago thereafter due to aortic valve replacement 3 years ago at [facility]. No reported coronary artery disease. This time she presented to the hospital because of 3 to 4 days of increased fatigue, presyncopal symptoms On admission she was noticed to be in third-degree AV block with heart rate in 40s. Labs shows hemoglobin 14.8, BUN 23, creatinine 1.07, AST ALT are mildly elevated at 5657 respectively, troponin of 0.012 normal, NT-proBNP 9000. She was on 50 mg metoprolol twice daily. Clinically she does not appear congestive heart failure. She is denying any chest pain chest pressure symptoms. BP 131/77, heart rate 72 EKG shows third-degree AV block, left bundle junctional escape rhythm. Chest x-ray shows no significant pulmonary congestion or consolidation. ................................................................................ .............................................................. Prior cardiac testing: [ ] ................. ................................................................................ ............................................. REVIEW OF SYSTEMS: 14 point review of system is negative except what is mentioned above in HPI. .............................................................................. ................................................................ PHYSICAL EXAMINATION: Neck: Brisk carotid upstroke, elevated jugular venous distention. Lungs: Clear to auscultation. Heart: Regular rate and rhythm, S1-S2, systolic murmur Abdomen: Soft nontender, positive bowel sounds. Extremities: No edema, intact distal pulses. Neuro: Alert, oritented, no focal deficits. Detailed neuro exam was not performed. ................................................................................ .............................................................. ASSESSMENT: # Complete heart block # Bicuspid aortic valve status post surgical bioprosthetic replacement in 2007, redo 2021 # Essential hypertension PLAN: Continue aspirin, Lipitor, lisinopril 5 mg Stop beta-isabel. Obtain echocardiogram N.p.o. after midnight, possible PPM tomorrow depending on Dr. Oleary's ability Selwyn Flores MD, [facility], [place] Past Medical History Additional Past Medical History / Comment(s): recent UTI-just finished antibiotics, leaky valve History of Any Multi-Drug Resistant Organisms: MRSA Date of last positivie culture/infection: 11/26/19 MDRO Source:: ARM MRSA Past Surgical History: Appendectomy, Cardiac Valve Replacement, Section, Hysterectomy Additional Past Surgical History / Comment(s): aortic valve replacement, recent LAMAR Past Psychological History: Anxiety Smoking Status: Never smoker Past Alcohol Use History: Rare Past Drug Use History: None Reported Medications and Allergies Home Medications Medication Instructions Recorded Confirmed Type Aspirin [Adult Low Dose Aspirin EC] 81 mg PO DAILY 05/26/20 11/28/24 History Magnesium Oxide [Mejia] 500 mg PO DAILY 05/26/20 11/28/24 History Metoprolol Tartrate [Lopressor] 50 mg PO BID 05/26/20 11/28/24 History Multivitamins, Thera [Multivitamin 1 tab PO DAILY 05/26/20 11/28/24 History (formulary)] Omeprazole 20 mg PO DAILY 05/26/20 11/28/24 History Rosuvastatin [Crestor] 20 mg PO HS 05/26/20 11/28/24 History Ubidecarenone [Co Q-10] 200 mg PO DAILY 05/26/20 11/28/24 History lisinopriL [Prinivil] 5 mg PO DAILY 05/26/20 11/28/24 History Sertraline [Zoloft] 100 mg PO DAILY 11/28/24 11/28/24 History Allergies Allergy/AdvReac Type Severity Reaction Status Date / Time No Known Allergies Allergy Verified 11/28/24 15:59 Physical Exam Vitals: Vital Signs Temp Pulse Pulse Resp BP Pulse Ox 11/28/24 18:05 98.2 F 42 L 16 131/77 96 11/28/24 17:00 39 L 16 118/74 96 11/28/24 16:00 40 L 18 140/74 97 11/28/24 15:00 41 L 18 139/86 98 11/28/24 14:27 42 L 18 146/89 97 11/28/24 14:01 42 L 18 148/78 98 11/28/24 13:16 43 L 16 150/52 92 L 11/28/24 13:14 42 L 11/28/24 13:03 97.9 F 43 L 20 129/73 99 Intake and Output 07/10/25 07/10/25 07/10/25 06:59 14:59 22:59 Other: Weight 68.039 kg Results 11/28/24 13:26 11/28/24 13:26 Cardiac Enzymes 11/28/24 11/28/24 Range/Units 13:26 13:26 AST 56 H (14-36) U/L Troponin I <0.012 (0.000-0.034) ng/mL Coagulation 11/28/24 Range/Units 13:26 PT 10.5 (10.0-12.5) sec APTT 20.9 L (22.0-30.0) sec CBC 11/28/24 Range/Units 13:26 WBC 8.44 (4.50-10.00) 10*3/uL RBC 4.98 (4.10-5.20) 10*6/uL Hgb 14.8 (12.0-15.0) g/dL Hct 43.5 (37.2-46.3) % Plt Count 152 (140-440) 10*3/uL Comprehensive Metabolic Panel 11/28/24 Range/Units 13:26 Sodium 139 (137-145) mmol/L Potassium 4.6 (3.5-5.1) mmol/L Chloride 103 (98-107) mmol/L Carbon Dioxide 20 L (22-30) mmol/L BUN 23 H (7-17) mg/dL Creatinine 1.07 H (0.52-1.04) mg/dL Glucose 135 H (74-99) mg/dL Calcium 10.1 (8.4-10.2) mg/dL AST 56 H (14-36) U/L ALT 57 H (4-34) U/L Alkaline Phosphatase 126 (38-126) U/L Total Protein 7.4 (6.3-8.2) g/dL Albumin 4.9 (3.5-5.0) g/dL Current Medications Generic Name Dose Route Start Last Admin Trade Name Freq PRN Reason Stop Dose Admin Aspirin 81 mg 11/29/24 09:00 Aspirin 81 Mg PO DAILY [facility] Atorvastatin Calcium 40 mg 11/28/24 21:00 Atorvastatin 40 Mg Tab PO HS [facility] Lisinopril 5 mg 11/29/24 09:00 Lisinopril 5 Mg Tab PO DAILY [facility] Magnesium Oxide 400 mg 11/29/24 09:00 Magnesium Oxide 400 Mg Tab PO DAILY [facility] Multivitamins 1 each 11/29/24 09:00 Multivitamins, Thera 1 Each Tab PO DAILY [facility] Naloxone HCl 0.2 mg 11/28/24 15:12 Naloxone 0.4 Mg/Ml 1 Ml Vial IV Q2M PRN Opioid Reversal Pantoprazole Sodium 40 mg 11/29/24 09:00 Pantoprazole 40 Mg Tablet PO DAILY [facility] Sertraline HCl 100 mg 11/29/24 09:00 Sertraline 100 Mg Tab PO DAILY [facility] Intake and Output 11/28/24 11/28/24 11/28/24 06:59 14:59 22:59 Other: Weight 68.039 kg Patient Weight 11/29/24 06:59 Weight 68.039 kg 11/28/24 13:26 11/28/24 13:26
[2024-11-28] MEDS: ATORVASTATIN 40 MG TAB PO SCH (20:22)
[2024-11-28 23:57] LABS: Glucose,Whole Blood 115 mg/dL (70-110)
[2024-11-29 07:12] LABS: Basophils # (A) 0.01 10*3/uL (0.00-0.10); Basophils % (A) 0.2 %; Eosinophils # (A) 0.07 10*3/uL (0.04-0.35); Eosinophils % (A) 1.4 %; HCT 37.9 % (37.2-46.3); HGB 12.6 g/dL (12.0-15.0); Lymphocytes # (A) 0.98 10*3/uL (0.90-5.00); Lymphocytes % (A) 19.8 %; MCH 29.3 pg (27.0-32.0); MCHC 33.2 g/dL (32.0-37.0); MCV 88.1 fL (80.0-97.0); Monocytes # (A) 0.44 10*3/uL (0.20-1.00); Monocytes % (A) 8.9 %; Neutrophils # (A) 3.45 10*3/uL (1.80-7.70); Neutrophils % (A) 69.5 %; Platelet Count 108 10*3/uL (140-440); RBC 4.30 10*6/uL (4.10-5.20); RDW 14.2 % (11.5-14.5); WBC 4.96 10*3/uL (4.50-10.00)
[2024-11-29 07:30] LABS: ALT 40 U/L (4-34); AST 37 U/L (14-36); African American GFR (CKD) 66 (>60 ml/min/1.73 sqM); Albumin 3.8 g/dL (3.5-5.0); Alkaline Phosphatase 97 U/L (38-126); Anion Gap 8 mmol/L; Blood Urea Nitrogen 18 mg/dL (7-17); Calcium 9.0 mg/dL (8.4-10.2); Carbon Dioxide 21 mmol/L (22-30); Chloride 110 mmol/L (98-107); Glucose 111 mg/dL (74-99); Magnesium 1.9 mg/dL (1.6-2.3); Non-African American GFR(CKD) 58 (>60 ml/min/1.73 sqM); Potassium 3.7 mmol/L (3.5-5.1); Sodium 139 mmol/L (137-145); Total Protein 6.0 g/dL (6.3-8.2)
[2024-11-29] MEDS: ASPIRIN 81 MG PO SCH (09:00)
[2024-11-29] MEDS ORDERED: NON FORMULARY DRUG (Ubidecarenone [Co Q-10] 100 MG Capsule) PO SCH (09:00)
[2024-11-29] MEDS: PANTOPRAZOLE 40 MG TABLET PO SCH (09:32)
[2024-11-29] MEDS: MULTIVITAMINS, THERA 1 EACH TAB PO SCH (09:32)
[2024-11-29] MEDS: MAGNESIUM OXIDE 400 MG TAB PO SCH (09:32)
[2024-11-29] MEDS: ACETAMINOPHEN TAB 325 MG TAB PO PRN (09:32)
[2024-11-29] MEDS: SERTRALINE 100 MG TAB PO SCH (09:33)
[2024-11-29] MEDS: ENOXAPARIN 40 MG/0.4 ML SYRINGE SQ SCH (09:33)
[2024-11-29] MEDS: SODIUM CHLORIDE 0.9% 1,000 ML IV SCH ×2 (11:05)
[2024-11-29 11:09] LABS: INR 1.0 (<1.2); Prothrombin Time 11.3 sec (10.0-12.5)
[2024-11-29 11:14] LABS: African American GFR (CKD) 63 (>60 ml/min/1.73 sqM); Anion Gap 13 mmol/L; Blood Urea Nitrogen 17 mg/dL (7-17); Calcium 9.3 mg/dL (8.4-10.2); Carbon Dioxide 19 mmol/L (22-30); Chloride 109 mmol/L (98-107); Glucose 110 mg/dL (74-99); Non-African American GFR(CKD) 55 (>60 ml/min/1.73 sqM); Potassium 4.0 mmol/L (3.5-5.1); Sodium 141 mmol/L (137-145)
[2024-11-29] MEDS: SODIUM CHLORIDE 0.9% 1,000 ML IV ONE (11:17)
[2024-11-29] MEDS: ceFAZolin 1 GM in SODIUM CHLORIDE 0.9% IRRIG BTL 250 ML IRRIGATION PRN (11:55)
--- NOTE | 2024-11-29 11:55 | CA ---
Transthoracic Echo Report Name: Glenna Shaffer Age: 79 Gender: F : 1945 Exam Date: 11/28/2024 16:14 Exam Location: [place] [facility] Ht (in): 60 Wt (lb): 150 Ordering Physician: Selwyn Flores MD ([email or web address]) Attending/Referring Phys: Court Supervisor Lianet Murillo RDCS Procedure CPT: Indications: complete heart block Cardiac Hx: porcine AOV Technical Quality: Good Contrast 1: Total Dose (mL): Contrast 2: Total Dose (mL): MEASUREMENTS (Male / Female) Normal Values 2D ECHO LV Diastolic Diameter PLAX 4.8 cm 4.2 - 5.9 / 3.9 - 5.3 cm LV Systolic Diameter PLAX 3.3 cm IVS Diastolic Thickness 0.9 cm 0.6 - 1.0 / 0.6 - 0.9 cm LVPW Diastolic Thickness 0.9 cm 0.6 - 1.0 / 0.6 - 0.9 cm LV Relative Wall Thickness 0.4 RV Internal Dim ED PLAX 3.5 cm LA Systolic Diameter LX 4.0 cm 3.0 - 4.0 / 2.7 - 3.8 cm LV Diastolic Volume MOD BP 104.0 cm??? 67 - 155 / 56 - 104 cm??? LV Systolic Volume MOD BP 39.5 cm??? 22 - 58 / 19 - 49 cm??? LV Ejection Fraction MOD BP 62.0 % >= 55 % LV Cardiac Index MOD BP 1498.1 cm???/min???m??? LV Diastolic Volume MOD 4C 116.7 cm??? LV Systolic Volume MOD 4C 35.6 cm??? LV Ejection Fraction MOD 4C 69.5 % LV Cardiac Index MOD 4C 1883.6 cm???/min???m??? LV Diastolic Length 4C 7.4 cm LV Systolic Length 4C 5.2 cm LV Diastolic Volume MOD 2C 92.2 cm??? LV Systolic Volume MOD 2C 37.9 cm??? LV Ejection Fraction MOD 2C 58.9 % LV Cardiac Index MOD 2C 1261.3 cm???/min???m??? LV Diastolic Length 2C 7.2 cm LV Systolic Length 2C 6.5 cm M-MODE Aortic Root Diameter MM 3.3 cm DOPPLER AV Peak Velocity 223.4 cm/s AV Peak Gradient 20.0 mmHg AV Mean Velocity 132.7 cm/s AV Mean Gradient 8.2 mmHg AV Velocity Time Integral 44.9 cm AI Peak Velocity 447.2 cm/s AI Peak Gradient 80.0 mmHg AI Pressure Half Time 1128.3 ms LVOT Peak Velocity 144.2 cm/s LVOT Peak Gradient 8.3 mmHg LVOT Velocity Time Integral 30.5 cm MR Peak Velocity 556.0 cm/s MR Peak Gradient 123.7 mmHg Mitral E Point Velocity 118.2 cm/s Mitral A Point Velocity 88.6 cm/s Mitral E to A Ratio 1.3 MV Deceleration Time 257.4 ms MV E' Velocity 7.8 cm/s Mitral E to MV E' Ratio 15.1 TR Peak Velocity 264.4 cm/s TR Peak Gradient 28.0 mmHg Right Ventricular Systolic Press 38.5 mmHg FINDINGS Left Ventricle Left ventricular ejection fraction is estimated at 50-55 %. Left ventricular cavity size normal. Left ventricular wall thickness normal. No obvious regional wall motion abnormalities. Right Ventricle Normal right ventricular size. Mild pulmonary hypertension. Right Atrium Mild right atrial dilatation. No right atrial thrombus or mass seen. Left Atrium Mildly increased left atrial diameter. Left atrial size at the upper limits of normal. Mitral Valve Structurally normal mitral valve. Mitral annular calcification. Mild mitral regurgitation. Aortic Valve Bioprosthetic AOV with max gradient of 20 mmHg and mean gradient of 8 mmHg. Mild aortic regurgitation. Tricuspid Valve Structurally normal tricuspid valve. [id number] tricuspid regurgitation. Pulmonic Valve Pulmonic valve not well visualized. No pulmonic regurgitation. Pericardium No pericardial effusion. Aorta Aortic annulus normal. Mildly dilated proximal ascending aorta 40 mm CONCLUSIONS Reason complete heart block, status post TAVR in the past, known underlying left bundle branch block Normal LV size with ejection fraction of 55% Stable bioprosthetic aortic valve with acceptable gradients Previewed by: Dr. Compa Oleary MD (Electronically Signed) Final Date: 29 November 2024 11:53
[2024-11-29] MEDS: LIDOCAINE 2% (PF) 20 MG/ML 5 ML VIAL SQ ONE ×2 (12:02→12:04)
[2024-11-29] MEDS: MIDAZOLAM 2 MG/2 ML VIAL IVP ONE (12:02)
[2024-11-29] MEDS: fentaNYL (PF) 50 MCG/1 ML VIAL IVP ONE ×2 (12:02→12:16)
[2024-11-29] MEDS: ROPIVACAINE 5 MG/ML 30 ML VIAL MISCELLANE ONE (12:04)
[2024-11-29] MEDS: IOPAMIDOL-370 100ML BTL IVP ONE (12:04)
[2024-11-29] MEDS ORDERED: ACETAMINOPHEN TAB 325 MG TAB PO PRN (13:38)
--- NOTE | 2024-11-29 13:41 | P.PCN ---
Preoperative Diagnosis: Patient underwent EP procedure under conscious sedation/moderate sedation, monitoring of the level of consciousness and physiologic parameters including but not limited to vital signs and oxygenation. Patient tolerated the procedure well without any acute complications. 47 minutes
--- NOTE | 2024-11-29 13:52 | P.HPIM ---
History of Present Illness H&P Date: 11/29/24 Chief Complaint: Complete heart block HISTORY OF PRESENT ILLNESS: This is a 79-year-old female with recent medical history significant for hypertension and hypertensive vascular disease, mixed hyperlipidemia, history of bicuspid aortic valve status post aortic valve replacement with peak redo valve in July 2020 mitral regurgitation, paroxysmal atrial fibrillation, GERD, MRSA, patient presented to the office yesterday with increased dyspnea on exertion associated with fatigue and generalized weakness, was feeling dizzy lightheaded at the same time, had a twelve-lead EKG in the office that showed evidence of third-degree AV block, patient was referred to the emergency department for evaluation by cardiology she was admitted to the intensive care unit, she was seen in consultation by cardiology she is scheduled to go for permanent pacemaker placement hopefully today. REVIEW OF SYSTEMS: Constitutional: No documented fever, no chills, no night sweats. No weight change. positive for weakness, fatigue or lethargy. positive for daytime sleepiness. EENT: No headache. No blurred vision or double vision, no loss of vision. No loss of Hearing, no ringing in the ears, no dizziness. No nasal drainage or congestion. No epistaxis. No sore throat. Lungs: positive for shortness of breath, no cough, no sputum production. No wheezing. Reports dyspnea with activity. Cardiovascular: No chest pain, no lower extremity edema. No palpitations. No paroxysmal nocturnal dyspnea. No orthopnea. positive for lightheadedness and dizziness. No syncopal episodes. Abdominal: Reports no abdominal pain. 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 No diarrhea. No constipation. No bloody or tarry stools reports loss of appetite. Genitourinary: No dysuria, increased frequency, urgency. No urinary retention. Musculoskeletal: No myalgias. No muscle weakness, no gait dysfunction, no frequent falls. No back pain. No neck pain. Integumentary: No wounds, no lesions. No rash or pruritus. No unusual bruising. No change in hair or nails. Neurologic: No aphasia. No facial droop. No change in mentation. No head injury. No headache. No paralysis. No paresthesia. Psychiatric: positive for depression. positive for anxiety. No mood swings. Endocrine: No abnormal blood sugars. No weight change. PAST MEDICAL HISTORY: Hypertension and hypertensive cardiovascular disease. Mixed hyperlipidemia. Bicuspid aortic valve status post AVR with pig redo valve 07/2020. Nonrheumatic mitral valve regurgitation. Paroxysmal atrial fibrillation. GERD. History of MRSA. Recurrent UTI PAST SURGICAL HISTORY: 1968 1971 1974 Total hysterectomy 1999 bicuspid aortic valve status post replacement 2007 AVR with a pig redo valve 07/2020 Melanoma in the right upper chest September 2022 SOCIAL HISTORY: Patient is a lifelong non-smoker, she denies any alcohol ingestion, no drug use or abuse. She does not use any marijuana. FAMILY HISTORY: Father at age 75 from lung cancer mother at age of 56 from non-Hodgkin lymphoma patient has 1 brother who was exposed to an agent orange and had 1 kidney removed, patient has 3 sisters 1 with prediabetes and the other 2 are okay, patient has 1 son 47-year-old with bradycardia patient has 2 daughters older brother with CVA due to blood clot and pulmonary embolism and lost peripheral vision and she had myocardial infarction at the age of 55 and 1 with benign lump in her breast at the age of 52 PHYSICAL EXAMINATION: General: 79-year-old female laying down in bed in no apparent distress. HEENT: Head is atraumatic, normocephalic, pupils were equal round reactive to light and recommendation, extraocular muscle movement were intact, sclera nonicteric, conjunctivae were pale, mucous membranes of the mouth are somewhat dry. Neck: Supple, no JVP, normal carotid upstroke bilaterally, no lymphadenopathy. Chest: Decreased breath sounds at the bases, few rhonchi, no expiratory wheezes, no chest wall tenderness, no intercostal retractions. Heart: First heart sound is normal, second heart sounds normal there is systolic ejection murmur 2/6 of the left sternal border. Abdomen: Soft, nontender, nondistended, positive bowel sounds. Extremities: There is no edema no calf tenderness DP +2 bilaterally. Neurologic examination: Patient is awake alert and oriented x3, cranial nerves II-12 appear grossly intact, muscle power were 5 out of 5 in upper extremities and 5 out of 5 in bilateral lower extremities, deep tendon reflexes normal bilaterally. ASSESSMENT AND PLAN: 1. Third-degree/complete AV block. Continue patient in ICU, discontinue beta- isabel, cardiology consultation appreciated, patient is scheduled to go for permanent pacemaker placement. Repeat laboratory evaluation today. 2. Hypertension and Hypertensive cardiovascular disease discontinue metoprolol at this time, continue patient on lisinopril 5 mg orally once every day, monitor the patient blood pressure very closely. 3. Mixed hyperlipidemia. Continue patient on atorvastatin 40 mg orally once every day, monitor lipid panel, keep LDL 55-70. 4. Paroxysmal atrial fibrillation patient was taken off Coumadin and she has And baby aspirin 81 mg once every day, she was taken off beta-isabel at this time due to complete heart block. She is to resume after the pacemaker placement. 5. GERD. Continue Protonix 40 mg orally once every day. 6. Prediabetes. Continue patient on low carb diet, monitor the patient hemoglobin A1c as an outpatient. 7. Generalized anxiety disorder. Continue patient on sertraline 100 mg orally once every day. 8. History of bicuspid aortic valve status post AVR with redo July 2020 9. Nonrheumatic mitral regurgitation stable at this time follows with cardiology on a regular basis. 10. Obstructive sleep apnea continue with CPAP. 11. DVT prophylaxis. Lovenox 40 mg subcutaneous every 24 hours. And bilateral knee-high BIANCA hose. 12. GI prophylaxis. Continue patient on Protonix 40 mg once every day. 13. Admit to patient. Estimated length of stay 2 midnights. 14. Patient is full code Past Medical History Additional Past Medical History / Comment(s): recent UTI-just finished antibiotics, leaky valve History of Any Multi-Drug Resistant Organisms: MRSA Date of last positivie culture/infection: 11/26/19 MDRO Source:: ARM MRSA Past Surgical History: Appendectomy, Cardiac Valve Replacement, Section, Hysterectomy, Orthopedic Surgery Additional Past Surgical History / Comment(s): aortic valve replacement, recent LAMAR, total left knee replacement, superficial melanoma removed Past Anesthesia/Blood Transfusion Reactions: Motion Sickness, Postoperative Nausea & Vomiting (PONV) Past Psychological History: Anxiety Smoking Status: Never smoker Past Alcohol Use History: Rare Past Drug Use History: None Reported - Past Family History Daughter(s) Family Medical History: Myocardial Infarction (OR) Medications and Allergies Home Medications Medication Instructions Recorded Confirmed Type Aspirin [Adult Low Dose Aspirin EC] 81 mg PO DAILY 05/26/20 11/28/24 History Magnesium Oxide [Mejia] 500 mg PO DAILY 05/26/20 11/28/24 History Metoprolol Tartrate [Lopressor] 50 mg PO BID 05/26/20 11/28/24 History Multivitamins, Thera [Multivitamin 1 tab PO DAILY 05/26/20 11/28/24 History (formulary)] Omeprazole 20 mg PO DAILY 05/26/20 11/28/24 History Rosuvastatin [Crestor] 20 mg PO HS 05/26/20 11/28/24 History Ubidecarenone [Co Q-10] 200 mg PO DAILY 05/26/20 11/28/24 History lisinopriL [Prinivil] 5 mg PO DAILY 05/26/20 11/28/24 History Sertraline [Zoloft] 100 mg PO DAILY 11/28/24 11/28/24 History Allergies Allergy/AdvReac Type Severity Reaction Status Date / Time No Known Allergies Allergy Verified 11/28/24 15:59 Physical Exam Vitals: Vital Signs Temp Pulse Pulse Resp BP BP Pulse Ox 11/29/24 06:00 37 L 16 120/56 96 11/29/24 05:00 38 L 24 120/56 95 11/29/24 04:00 97.7 F 38 L 12 106/47 96 11/29/24 03:00 37 L 22 87/51 94 L 11/29/24 02:00 38 L 12 102/53 94 L 11/29/24 01:00 38 L 30 H 128/62 11/29/24 00:00 97.5 F L 40 L 48 L 18 143/106 128/62 97 11/28/24 23:58 22 98 11/28/24 23:50 43 L 99 11/28/24 23:33 98.3 F 39 L 16 110/60 97 11/28/24 23:00 41 L 16 106/59 97 11/28/24 22:00 98.3 F 39 L 18 102/52 98 11/28/24 20:00 98.2 F 42 L 18 119/75 98 11/28/24 19:17 98.3 F 45 L 18 126/80 98 11/28/24 19:00 42 L 124/69 98 11/28/24 18:05 98.2 F 42 L 16 131/77 96 11/28/24 17:00 39 L 16 118/74 96 11/28/24 16:00 40 L 18 140/74 97 11/28/24 15:00 41 L 18 139/86 98 11/28/24 14:27 42 L 18 146/89 97 11/28/24 14:01 42 L 18 148/78 98 11/28/24 13:16 43 L 16 150/52 92 L 11/28/24 13:14 42 L 11/28/24 13:03 97.9 F 43 L 20 129/73 99 Intake and Output 11/28/24 11/28/24 11/29/24 14:59 22:59 06:59 Output Total 0 Balance 0 Output: Urine 0 Other: # Voids 1 Weight 68.039 kg 70 kg Results CBC & Chem 7: 11/29/24 07:04 11/29/24 10:35 Labs: Abnormal Lab Results - Last 24 Hours (Table) 11/28/24 11/28/24 11/28/24 Range/Units 13:26 13:26 13:26 Eosinophils # 0.03 L (0.04-0.35) 10*3/uL APTT 20.9 L (22.0-30.0) sec Carbon Dioxide 20 L (22-30) mmol/L BUN 23 H (7-17) mg/dL Creatinine 1.07 H (0.52-1.04) mg/dL Glucose 135 H (74-99) mg/dL POC Glucose (mg/dL) (70-110) mg/dL AST 56 H (14-36) U/L ALT 57 H (4-34) U/L 11/28/24 Range/Units 23:55 Eosinophils # (0.04-0.35) 10*3/uL APTT (22.0-30.0) sec Carbon Dioxide (22-30) mmol/L BUN (7-17) mg/dL Creatinine (0.52-1.04) mg/dL Glucose (74-99) mg/dL POC Glucose (mg/dL) 115 H (70-110) mg/dL AST (14-36) U/L ALT (4-34) U/L Thrombosis Risk Factor Assmnt - Choose All That Apply Each Risk Factor Represents 3 Points: Age 75 years or older Thrombosis Risk Factor Assessment Total Risk Factor Score: 3 Thrombosis Risk Factor Assessment Level: Moderate Risk
[2024-11-29] MEDS: ACETAMINOPHEN IV (For NPO) 1,000 MG in EMPTY BAG 1 BAG IVPB ONE (14:55)
--- NOTE | 2024-11-29 19:06 | P.EPPROC ---
- EP Procedure Note Electrophysiology Procedure Note: Diagnosis Symptomatic bradycardia, unprovoked, no triggering factors Complete heart block with escape rhythm at 40 beats a minute sustained and symptomatic Procedure Dual-chamber pacemaker implantation with conduction system pacing (left bundle pacing) Left upper extremity venogram Conscious sedation, dictated separately Details Patient was brought to the EP lab in a fasting state. Written informed consent was obtained prior to the procedure. Conscious sedation provided by INTERLOCKER. IV antibiotics administered. Local anesthesia administered. A 4 cm incision made in the pectoral area. Subfascial pocket made. Venous accesses obtained Venous sheaths placed. Leads placed in the right heart. 2 sets of pacing cables were used; one for backup temporary pacing and the other for assessment of current of injury and signal analysis. A 52 cm atrial pacing lead was first positioned in the RV apex for temporary pacing during mapping and conduction system pacing Thresholds were interrogated and backup high output pacing was provided This atrial lead was then removed from the right ventricle and later positioned in the right atrial appendage and the permanent lead A deflected sheath was prepped. A coronary sinus decapolar catheter was placed within this sheath. The catheter along with the sheath was then passed into the right heart, the catheter was prolapsed across the tricuspid valve, into the right ventricle and then further into the right ventricular outflow tract across the pulmonic valve into the pulmonary artery. This sheath was slid over this decapolar catheter into the RVOT. Thereafter the catheter last sheath assembly was withdrawn from the RVOT along the septum to the mid septal area. The sheath was appropriately to to map the right ventricular aspect of the septum. The decapolar catheter was withdrawn, the sheath flushed again and the screw-in pacing lead placed within the sheath. Further detailed unipolar pace-mapping of the septum was performed and once the appropriate based morphology was obtained on lead V1, the lead was screwed into the septum. The lead was screwed in 4-5 returns at a time while monitoring the current of injury, the pacing impedance changes and the paced QRS morphology. The stimulus to peak of V6 QRS was measured at each step. Once a QR or rSR pattern of paced QRS in lead V1 was obtained, a left bundle signal was sought. Impedance was measured and thresholds were measured. An impedance drop of 100-200 ohms but above 550 ohms was targeted along with an unchanged vector of the current of injury signal. The final positioning was based on the QRS morphology in lead V1 and a short stimulus to peak of the V6 QRS of less than 90 ms. The sheath was withdrawn, stability of the pacing lead deep in the septum was confirmed on JAY and REMINGTON views and the sheath was slipped and an adequate heel was provided for the lead. Unipolar and bipolar electrogram morphology obtained Atrial lead positioned in the right atrial appendage. Sensing, thresholds and impedances measured following positioning and securing the lead in the right atrial appendage Left bundle lead parameters: Medtronic 3830-lead. 69 cm in length. No R waves. Pacing impedance 494 ohms. Pacing threshold 0.5 V at 0.4 ms qr/rSr' pattern in lead I. Rapid activation in lead 1 in 48 ms Atrial lead parameters: Medtronic model 5076, 52 cm in length. P waves 1.3 mV, pacing impedance 418 ohms and pacing threshold 0.8 V at 0.4 ms Device car jockey Medtronic Suze XT DR MRI Dual-chamber pacemaker device connected to the leads and placed in the subfascial pocket Patient tolerated the procedure well without acute complications Pacemaker programming DDD 60 Peak activation time in lead I Unipolar left bundle pacing equals 48 ms Bipolar left bundle pacing equals 56 ms
[2024-11-29 21:55] LABS: Bilirubin,Urine Negative (Negative); Blood,Urine Negative (Negative); Color,Urine Yellow; Glucose,Urine (UA) Negative (Negative); Ketones,Urine Trace (Negative); Leukocyte Esterase,Urine Negative (Negative); Nitrite,Urine Negative (Negative); PH, Urine 5.5 (5.0-8.0); Protein,Urine Trace (Negative); Urobilinogen,Urine <2.0 mg/dL (<2.0)
[2024-11-29 21:57] LABS: Specific Gravity,Urine 1.046 (1.001-1.035)
--- NOTE | 2024-11-30 07:08 | XR ---
Chest, 2 view. CLINICAL INDICATION: Female, 79 years old with history of Lead placement check COMPARISON: 11/28/2024 TECHNIQUE: PA and lateral views the chest are obtained. FINDINGS: There is been interval placement of a 2-lead cardiac pacemaker which appears to be in satisfactory po sition. The lungs are clear and there is no consolidative or interstitial opacity. There is no pleural effusion or pneumothorax. The heart, pulmonary vasculature, mediastinum and judy appear normal. The osseous structures are intact. IMPRESSION: No acute cardiopulmonary disease. [facility], , 11/30/2024 7:05 AM
[2024-11-30 08:30] VITALS: PULSE 78; RESP 14; TEMP 98.3
--- NOTE | 2024-11-30 08:46 | P.PN ---
Subjective Progress Note Date: 11/30/24 HISTORY OF PRESENTING ILLNESS: 79-year-old previously known to Dr. Carbajal prior history of bicuspid aortic valve status post surgical aortic valve replacement 17 years ago thereafter due to aortic valve replacement 3 years ago at [facility]. No reported coronary artery disease. This time she presented to the hospital because of 3 to 4 days of increased fatigue, presyncopal symptoms On admission she was noticed to be in third-degree AV block with heart rate in 40s. Labs shows hemoglobin 14.8, BUN 23, creatinine 1.07, AST ALT are mildly elevated at 5657 respectively, troponin of 0.012 normal, NT-proBNP 9000. She was on 50 mg metoprolol twice daily. Clinically she does not appear con gestive heart failure. She is denying any chest pain chest pressure symptoms. BP 131/77, heart rate 72 EKG shows third-degree AV block, left bundle junctional escape rhythm. Chest x-ray shows no significant pulmonary congestion or consolidation. .................................................... ................................................................................ .......... Prior cardiac testing: Echo from this admission shows an EF of 55%, bioprosthetic aortic valve with acceptable gradients with no significant leak. ............................................................. ................................................................................ . Progress note 12/09/2024 Seen and examined at bedside this a.m. BP 152/60 8 repeat 135/76, heart rate 72 bpm Will ask nurse to obtain EKG. If EKG is okay, she can be discharged from cardiovascular standpoint. Chest x-ray was reviewed and does not show any signs of pericardial effusion or pneumothorax Labs were reviewed BUN 17, creatinine 0.9 Patient report symptomatic improvement ................................... ................................................................................ ........................... PHYSICAL EXAMINATION: Neck: Brisk carotid upstroke, elevated jugular venous distention. Lungs: Clear to auscultation. Heart: Regular rate and rhythm, S1-S2, systolic murmur, left chest dressing in place for the pacemaker appears intact with no significant bleeding Abdomen: Soft nontender, positive bowel sounds. Extremities: No edema, intact distal pulses. Neuro: Alert, oritented, no focal deficits. Detailed neuro exam was not performed. .................................................. ................................................................................ ............ ASSESSMENT: # Complete heart block, spontaneous with symptoms of fatigue and shortness of breath # Bicuspid aortic valve status post surgical bioprosthetic replacement in 2007, redo 2021 # Essential hypertension PLAN: Continue aspirin, Lipitor, increase lisinopril to 10 mg. Stop beta-isabel. Patient is cleared to be discharged from cardiovascular standpoint. Device clinic appointment within 1 week. Follow-up with Dr. Flores in 1 to 2 weeks Objective - Vital Signs Vital signs: Vital Signs Temp 98.3 F 11/30/24 08:28 Pulse 78 11/30/24 08:28 Resp 14 11/30/24 08:28 BP 135/76 11/30/24 08:28 Pulse Ox 98 11/30/24 08:28 FiO2 Intake & Output 11/29/24 11/30/24 11/30/24 18:59 06:59 18:59 Intake Total 350 240 Output Total 0 Balance 350 240 Intake: IV 200 ACETAMINOPHEN IV (For NPO 100 ) 1,000 mg In Empty Bag 1 bag @ 400 mls/hr IVPB ONCE ONE Rx#:[id number] Oral 150 240 Output: Urine 0 Other: Voiding Method Toilet Toilet # Voids 1 - Labs CBC & Chem 7: 11/29/24 07:04 11/29/24 10:35 Labs: Abnormal Lab Results - Last 24 Hours (Table) 11/28/24 11/29/24 Range/Units 21:00 10:35 Chloride 109 H (98-107) mmol/L Carbon Dioxide 19 L (22-30) mmol/L Glucose 110 H (74-99) mg/dL Ur Specific [place] 1.046 H (1.001-1.035) Urine Protein Trace H (Negative) Urine Ketones Trace H (Negative)
[2024-11-30 12:18] VITALS: BP 138/78
--- NOTE | 2024-11-30 12:31 | P.DS ---
Providers Date of admission: 11/28/24 15:17 Expected date of discharge: 11/30/24 Attending physician: Susanne Evans Consults: 11/28/24 15:12 Consult Physician Urgent Consulting Provider: Selwyn Flores Consult Reason/Comments: Complete heart block Do you want consulting provider notified?: Already Contacted Primary care physician: Susanne Evans Hospital Course: HISTORY OF PRESENT ILLNESS: This is a 79-year-old female with recent medical history significant for hypertension and hypertensive vascular disease, mixed hyperlipidemia, history of bicuspid aortic valve status post aortic valve replacement with peak redo valve in July 2020 mitral regurgitation, paroxysmal atrial fibrillation, GERD, MRSA, patient presented to the office yesterday with increased dyspnea on exertion associated with fatigue and generalized weakness, was feeling dizzy lightheaded at the same time, had a twelve-lead EKG in the office that showed evidence of third-degree AV block, patient was referred to the emergency department for evaluation by cardiology she was admitted to the intensive care unit, she was seen in consultation by cardiology she is scheduled to go for permanent pacemaker placement hopefully today. 11/30: Patient underwent permanent pacemaker placement due to third-degree AV block yesterday successfully by Dr. Oleary, patient is doing a lot better today is a bit of bleeding where the pocket is no evidence of any significant hematoma at this point in time, she has no abdominal pain, chest pain, shortness of breath, she has no urinary tract infection signs or symptoms at this time, however urinalysis was done and it is negative, there is no need for oral antibiotic at this point in time unless otherwise advised by cardiology for the aforementioned procedure discharge diagnoses: 1. Third-degree/complete AV block status post permanent pacemaker placement 2. Hypertension and Hypertensive cardiovascular disease 3. Mixed hyperlipidemia. 4. Paroxysmal atrial fibrillation 5. GERD. 6. Prediabetes. 7. Generalized anxiety disorder. 8. History of bicuspid aortic valve status post AVR with redo July 2020 9. Nonrheumatic mitral regurgitation 10. Obstructive sleep apnea continue with CPAP. 11. Urinalysis is negative and no signs or symptoms of UTI Patient Condition at Discharge: Stable Plan - Discharge Summary New Discharge Prescriptions: No Action Ubidecarenone [Co Q-10] 200 mg PO DAILY Magnesium Oxide [Mejia] 500 mg PO DAILY Multivitamins, Thera [Multivitamin (formulary)] 1 tab PO DAILY Rosuvastatin [Crestor] 20 mg PO HS Aspirin [Adult Low Dose Aspirin EC] 81 mg PO DAILY Metoprolol Tartrate [Lopressor] 50 mg PO BID lisinopriL [Prinivil] 5 mg PO DAILY Omeprazole 20 mg PO DAILY Sertraline [Zoloft] 100 mg PO DAILY Discharge Medication List Aspirin [Adult Low Dose Aspirin EC] 81 mg PO DAILY 05/26/20 [History] Magnesium Oxide [Mejia] 500 mg PO DAILY 05/26/20 [History] Metoprolol Tartrate [Lopressor] 50 mg PO BID 05/26/20 [History] Multivitamins, Thera [Multivitamin (formulary)] 1 tab PO DAILY 05/26/20 [History] Omeprazole 20 mg PO DAILY 05/26/20 [History] Rosuvastatin [Crestor] 20 mg PO HS 05/26/20 [History] Ubidecarenone [Co Q-10] 200 mg PO DAILY 05/26/20 [History] lisinopriL [Prinivil] 5 mg PO DAILY 05/26/20 [History] Sertraline [Zoloft] 100 mg PO DAILY 11/28/24 [History] Follow up Appointment(s)/Referral(s): Selwyn Flores MD [Medical Doctor] - 1 Week Susanne Evans MD [Primary Care Provider] - 1-2 days Patient Instructions/Handouts: Bradycardia (DC), Pacemaker (DC), Pacemaker (GEN) Activity/Diet/Wound Care/Special Instructions: PATIENT EDUCATION MATERIAL Instructions following a heart rhythm device implant. 1. Keep dressing DRY for 5 DAYS. You may cover the area with Saran or Cling Wrap, prior to a shower. 2. The dressing will be removed in the Device Clinic at [facility]. Absorbable sutures were used to close the wound. 3. Avoid raising the left arm above the shoulder level. 4 week restriction 4. Avoid arm movements, like backscratching, rubbing the head, or pulling on a cord. 4 weeks restriction 5. Gentle range of motion movements of the shoulder, closest to the incision should be performed to avoid a frozen shoulder. (Pendulum exercises of the shoulder) 6. The opposite arm may be used freely. 7. Avoid driving for 7 days. 8. Avoid activities such as golfing, swimming, weed whacking, lifting more than 10 pounds weight, bowling, gymnastics and weight training/lifting. (6 weeks restriction) 9. Activities such as wood chopping with an axe, pull-ups in the gymnasium, power lifting, arc-welding, being close to home induction cooktops will always be a problem. 10. Arm sling is only a reminder not to raise the arm above the head. You do not need to keep the arm completely immobilized. Your free to move the arm and use it and for normal activities. In case of any problems, please call [facility] [place], @ [phone], Attention: Device Clinic Device clinic follow-up in 5 days Follow-up with primary soldering machine feeder in 2-3 months
== END 2024-11-30 13:39 | disposition home health service (06) | DRG 243 ==
LOC: EC 13:01 → 2SICU 15:17 → 3SCARD 11-29 21:28
PROVIDERS: ADMIT Internal Medicine; ATTEND Internal Medicine
PROC: 02H63JZ Insertion of Pacemaker Lead into Right Atrium, Percutaneous Approach (ICD-10-PCS; principal; 2024-11-30)
PROC: 02HK3JZ Insertion of Pacemaker Lead into Right Ventricle, Percutaneous Approach (ICD-10-PCS; principal; 2024-11-30)
PROC: 0JH606Z Insertion of Pacemaker, Dual Chamber into Chest Subcutaneous Tissue and Fascia, Open Approach (ICD-10-PCS; principal; 2024-11-30)
DX: I44.2 Atrioventricular block, complete (principal); N39.0 Urinary tract infection, site not specified; E78.2 Mixed hyperlipidemia; I11.9 Hypertensive heart disease without heart failure; Q23.81 Bicuspid aortic valve; I48.0 Paroxysmal atrial fibrillation; I49.2 Junctional premature depolarization; R00.1 Bradycardia, unspecified; F41.1 Generalized anxiety disorder; G47.33 Obstructive sleep apnea (adult) (pediatric); I34.0 Nonrheumatic mitral (valve) insufficiency; K21.9 Gastro-esophageal reflux disease without esophagitis; R73.03 Prediabetes; Z95.3 Presence of xenogenic heart valve; Z79.82 Long term (current) use of aspirin; Z79.899 Other long term (current) drug therapy; Z85.820 Personal history of malignant melanoma of skin; Z86.14 Personal history of Methicillin resistant Staphylococcus aureus infection; Z87.440 Personal history of urinary (tract) infections; Z96.652 Presence of left artificial knee joint
CPT/HCPCS: 33208; 36415; 71046; 80048; 80053; 81003; 83735; 83880; 84484; 85025; 85610; 85730; 86850; 86900; 86901; 93005; 93306; 99291